=== PATIENT | female | born 1990 ===

== ENCOUNTER 2019-02-18 08:24 | Emergency (ER) | payer OTHER ==
[~2019-02-18 08:24] MED LIST: NALOXONE HYDROCHLORIDE 0.4 MG/ML SOL IM ONE; NALOXONE HYDROCHLORIDE 0.4 MG/ML SOL IV ONE
[2019-02-18] MEDS ORDERED: SODIUM CHLORIDE 0.9% 1000ML 1,000 ML IV ONE ×2 (08:45→12:43)
[2019-02-18 09:18] LABS: BASOPHILS % (AUTO) 0 % (0-3); EOSINOPHILS % (AUTO) 0 % (0-9); HEMATOCRIT 38 % (35-47); HEMOGLOBIN 12.3 gm/dl (12.0-15.5); LYMPHOCYTES % (AUTO) 8.1 % (10-50); MEAN CORPUSCULAR HEMOGLOBIN 29.7 pg (27.0-32.0); MEAN CORPUSCULAR HGB CONC 32.1 gm/dl (32.0-36.0); MEAN CORPUSCULAR VOLUME 92 fL (81-99); MONOCYTES % (AUTO) 4.8 % (0-12); NEUTROPHILS % (AUTO) 86.3 % (37-80)
[2019-02-18 09:23] LABS: APPEARANCE,URINE Slightly Cloudy; BILIRUBIN,URINE NEGATIVE (NEGATIVE); COLOR,URINE Yellow; GLUCOSE, URINE (UA) 2+ (NEGATIVE); KETONES,URINE NEGATIVE (NEGATIVE); LEUKOCYTE ESTERASE ,URINE NEGATIVE (NEGATIVE); NITRATE,URINE POSITIVE (NEGATIVE); OCCULT BLOOD,URINE TRACE INTACT (NEG-TRACE); PH,URINE 6.5; UROBILINOGEN,URINE 0.2 (0.2-1.0 EU)
[2019-02-18 09:31] LABS: ALBUMIN 3.6 gm/dl (3.4-5.0); ALKALINE PHOSPHATASE 71 IU/L (46-116); ALT 55 IU/L (14-63); AST 58 IU/L (15-37); BILIRUBIN,TOTAL 0.2 mg/dl (0.2-1.0); BLOOD UREA NITROGEN 14 mg/dl (7-18); CALCIUM 8.6 mg/dl (8.5-10.1); CHLORIDE 105 mMol/L (98-107); CREATININE 0.99 mg/dl (0.60-1.00); GLUCOSE 105 mg/dl (74-106); SALICYLATE 3.2 mg/dl (2.8-30.0); THYROID STIMULATING HORMONE 2.722 uIU/ml (0.358-3.740); TOTAL PROTEIN 7.3 gm/dl (6.4-8.2)
[2019-02-18 09:32] LABS: AMPHETAMINES NEGATIVE (NEGATIVE); BARBITUATES NEGATIVE (NEGATIVE); BENZODIAZEPINES NEGATIVE (NEGATIVE); CANNABINOL(THC) NEGATIVE (NEGATIVE); COCAINE(COC) NEGATIVE (NEGATIVE); METHAMPHETAMINES NEGATIVE (NEGATIVE); OPIATES(OPI) NEGATIVE (NEGATIVE); OXYCODONE(OXY) NEGATIVE (NEGATIVE); PROPOXYPHENE(PPX) NEGATIVE (NEGATIVE)
[2019-02-18 09:38] LABS: ACETAMINOPHEN < 2 ug/ml (10-30); ALCOHOL 0.004 gm/dl (0.000-0.08)
[2019-02-18 09:58] LABS: EPITHELIAL CELLS 0-1 (SQUAMOUS); RBC,URINE NEG (0-3AV/HPF)
[2019-02-18 09:59] LABS: BACTERIA 2+ (< 1+); CRYSTALS NEGATIVE (0-3 AVE/HPF)
[2019-02-18] MEDS ORDERED: SODIUM CHLORIDE 0.9% FLUSH 10 ML SOL IV PRN (10:47)
[2019-02-18] MEDS ORDERED: SODIUM CHLORIDE/KCL 20MEQ 1,000 ML IV ONE ×2 (12:45→13:01)
[2019-02-18 16:16] VITALS: TEMP 97.9
[2019-02-18 19:26] VITALS: BP 119/86; PULSE 90; RESP 18; O2SAT 99
== END 2019-02-18 19:23 | disposition short-term general hospital (02) ==
LOC: ED 08:24
DX: T40.1X4A Poisoning by heroin, undetermined, initial encounter (principal)
CPT/HCPCS: 36415; 80053; 80305; 80307; 81001; 84443; 84703; 85025; 96365; 96366; 96372; 96374; 99285; 99291; J2310